=== PATIENT | female | born 1985 | race Caucasian/White ===

== ENCOUNTER 2016-07-18 06:05 | Inpatient (IN) | payer OTHER ==
[~2016-07-18] VITALS: Ht 165.1 cm; Wt 102.5 kg
[2016-07-18] VITALS (15 sets, daily range): BP systolic 123–145; BP diastolic 61–99; PULSE 67–83; RESP 16–20; TEMP 97.9–98.7
[2016-07-18 07:57] LABS: AUTOMATED NEUTROPHIL # 10.1 TH/MM3 (1.8-7.7); BASOPHIL # 0.1 TH/MM3 (0-0.2); BASOPHIL % 0.4 % (0.0-2.0); EOSINOPHIL # 0.2 TH/MM3 (0-0.4); EOSINOPHIL % 1.2 % (0.0-4.0); HEMATOCRIT 38.1 % (35.0-46.0); HEMO FLAGS DIFF FINAL; LYMPH % 17.3 % (9.0-44.0); LYMPHOCYTE # 2.4 TH/MM3 (1.0-4.8); MEAN CELL VOLUME 89.7 FL (80.0-100.0); MEAN CORPUSCULAR HEMOGLOBIN 30.9 PG (27.0-34.0); MEAN CORPUSCULAR HGB CONC 34.4 % (32.0-36.0); MONO % 6.8 % (0.0-8.0); NEUT % 74.3 % (16.0-70.0); PLATELET COUNT 264 TH/MM3 (150-450); RED BLOOD COUNT 4.25 MIL/MM3 (4.00-5.30); RED CELL DISTRIBUTION WIDTH 13.6 % (11.6-17.2); WHITE BLOOD COUNT 13.7 TH/MM3 (4.0-11.0)
[2016-07-18] MEDS ORDERED: PREN1MIS19 PO (07:58)
[2016-07-18 08:09] LABS: BACTERIA, URINE OCC /hpf; BLOOD, URINE LARGE (NEG); GLUCOSE,URINE NEG (NEG); KETONE, URINE NEG (NEG); MUCUS URINE FEW /lpf (OCC); NITRITE,URINE NEG (NEG); PH, URINE 5.5 (5.0-8.5); SQUAMOUS EPITHELIAL CELL URINE 7 /hpf (0-5); URINE COLOR YELLOW (YELLW/STRAW)
[2016-07-18 08:10] LABS: COMMENT (UR) CULTURE INDICATED; CULTURE IF INDICATED CULTURE INDICATED
[2016-07-18] MEDS ORDERED: MEPERIDINE HCL 50 MG/ML VIAL ONE (08:12)
[2016-07-18] MEDS ORDERED: LIDOCAINE HCL 1% 50 ML VIAL ONE (08:12)
[2016-07-18] MEDS ORDERED: OXYTOCIN 30 UNITS-500ML PREMIX 500 ML ONE (08:14)
[2016-07-18 08:27] LABS: ALT (GPT) 15 U/L (10-53); ANION GAP 12 MEQ/L (5-15); AST (GOT) 14 U/L (15-37); BLOOD UREA NITROGEN 11 MG/DL (7-18); CHLORIDE 109 MEQ/L (98-107); GLOMERULAR FILTRATION RATE 88 ML/MIN (>89); POTASSIUM 3.9 MEQ/L (3.5-5.1); SODIUM (NA) 139 MEQ/L (136-145); URIC ACID 6.3 MG/DL (2.6-6.0)
[2016-07-18 08:29] LABS: ALKALINE PHOSPHATASE 125 U/L (45-117); TOTAL BILIRUBIN ADULT 0.4 MG/DL (0.2-1.0)
[2016-07-18] MEDS ORDERED: oxyCODONE/ACETAMINOPHEN 5 MG/325 MG TAB PO PRN ×2 (09:00)
[2016-07-18] MEDS ORDERED: ZOLPIDEM TARTRATE 5 MG TAB PO PRN (09:00)
[2016-07-18] MEDS ORDERED: ALUMINUM/MAGNESIUM/SIMETH 30 ML CUP PO PRN (09:00)
[2016-07-18] MEDS ORDERED: ACETAMINOPHEN 325 MG TAB PO PRN (09:00)
[2016-07-18] MEDS: SODIUM CHLORIDE 0.9% FLUSH 10 ML FLUSH IV FLUSH SCH (09:00)
[2016-07-18] MEDS ORDERED: WITCH HAZEL 50%/GLYCERIN 12.5% 40 PAD JAR TOPICAL PRN (09:00)
[2016-07-18] MEDS ORDERED: BENZOCAINE 20% TOPICAL SPRAY 60 ML CAN TOPICAL PRN (09:00)
[2016-07-18] MEDS ORDERED: ONDANSETRON ODT 4 MG TAB PO PRN (09:00)
[2016-07-18] MEDS ORDERED: OXYTOCIN 30 UNITS-500ML PREMIX 500 ML IV ONE (09:00)
[2016-07-18] MEDS ORDERED: MEPERIDINE HCL 50 MG/ML VIAL IV PUSH ONE (09:00)
[2016-07-18] MEDS ORDERED: SODIUM CHLORIDE 0.9% FLUSH 10 ML FLUSH IV FLUSH PRN (09:00)
--- NOTE | 2016-07-18 09:00 | PD.OB.DELI ---
Delivery Date: Jul 18, 2016 Anesthesia: None Episiotomy: None Vaginal Delivery: Normal Presentation: Occiput anterior Nuchal Cord: None Delayed cord clamping (45 sec): Yes Infant: Male One Minute : 7 Five Minute : 9 Placenta: Spontaneous delivery, Intact, 3 vessel cord Laceration: Perineal laceration, 2 deg Additional Information Quick vaginal delivery of Vicente. Repaired right labial laceration with 5-0 vicryl and midline tear with 3-0 vicryl EBL 300cc Small scrotal separation noted on baby Iris Bentley MD Jul 18, 2016 09:00
--- NOTE | 2016-07-18 09:24 | HHI.HP ---
HPI Chief Complaint late entry, pt seen & admitted with precipitous delivery CC: severe labor pains, contractions Date Seen: Jul 18, 2016 Time Seen: 09:00 Travel History International Travel<30 Days: No Contact w/Intl Traveler<30Days: No Known Affected Area: No History of Present Illness HPI 31 yo G1 EDC 07/19/16 seen in OB ED by FP resident with c/o severe contraction pain. SVE 5/C/BBOW. Admitted for labor. Uncomplicated PNC from record review of office notes, seen by Dr. Nila Cao for all 7 visits at [facility]. Pain 8/10 on admit. Para: 0 : 1 Miscarriage: 0 : 0 History Past Medical History Medical History: Denies Significant Hx Obstetric History Obstetric History G1 = current Past Surgical History Narrative Surgical denies Family History Family History: Negative Social History Alcohol Use: No Tobacco Use: No Substance Abuse: No Allergies-Medications (Allergen,Severity, Reaction): Coded Allergies: No Known Allergies (Unverified , 07/18/16) Home Meds Reported Medications Vit W/ Ferrous Fumara (Pnv Plus Multivi 27-1 & 312 mg)1 Mis Mis1 Tab PO DAILY 07/18/16 Review of Systems General / Constitutional: Weight Gain, No: Fever, Chills, Other Eyes: No: Diploplia, Blurred Vision, Visual changes, Pain, Photophobia HENT: No: Headaches, Vertigo, Lightheadedness Cardiovascular: No: Irregular Rhythm, Chest Pain or Discomfort, Palpitations, Tachycardia, Syncope, Varicosities, Edema, Cyanosis Respiratory: No: Cough, Short of Breath, Other Gastrointestinal: No: Nausea, Vomiting, Diarrhea Genitourinary: Pelvic Pain (pressure/ctx), No: Decreased Urinary Output, Oliguria Musculoskeletal: No: Limited ROM, Weakness, Cramping, Edema, Pain Skin: No Rash, No Itching, No Dryness, No Lumps, No Change in Pigmentation, No Change in Nails, No Alopecia, No Lesions Neurologic: No: Weakness, Dizziness, Syncope, Focal Abnormalities, Coordination Problem, Headache, Slurred Speech, Seizures Psychiatric: No: Depression, Suicidal Ideations, Homicidal Ideation Endocrine: No: Heat Intolerance, Cold Intolerance, Polydipsia, Polyuria, Other Physical Exam Vital Signs Date Time Temp Pulse Resp B/P Pulse Ox O2 Delivery O2 Flow Rate FiO2 07/18/16 08:46 77 137/68 07/18/16 08:46 97.9 07/18/16 08:44 20 07/18/16 08:43 79 145/99 07/18/16 08:35 18 07/18/16 08:28 72 126/71 07/18/16 07:50 70 124/78 Narrative GENERAL: Well-nourished, well-developed patient. Acute distress w/ ctx SKIN: Warm and dry. HEAD: Normocephalic and atraumatic. EYES: No scleral icterus. No injection or drainage. ENT: No nasal drainage noted. Mucous membranes pink. Airway patent. NECK: Supple, trachea midline. No JVD. CARDIOVASCULAR: Regular rate and rhythm without murmurs, gallops, or rubs. RESPIRATORY: Breath sounds equal bilaterally. No accessory muscle use. BREASTS: deferred ABDOMEN/GI: Abdomen soft, non-tender, bowel sounds present, no rebound, no guarding Gravid to [-] weeks size Fundal Height: [-] GENITOURINARY: per report 5/C/BBOW FHT's: Category:I EXTREMITIES: No cyanosis or edema. BACK: Nontender without obvious deformity. No CVA tenderness. NEUROLOGICAL: Awake and alert. Motor and sensory grossly within normal limits. Five out of 5 muscle strength in all muscle groups. Normal speech. Data Data Vital Signs Reviewed: Yes Orders Ob (2e) Additional Admit Info (07/18/16 07:13) Physician Name Changes (07/18/16 ) Fentanyl Inj (Fentanyl Inj) (07/18/16 07:33) Complete Blood Count With Diff (07/18/16 07:46) Hold Clot (07/18/16 07:46) Abo/Rh Blood Type (07/18/16 07:46) Urinalysis - C+S If Indicated (07/18/16 07:46) Uric Acid (07/18/16 07:50) Comprehensive Metabolic Panel (07/18/16 07:50) Admit To Inpatient (07/18/16 ) Resp Oxygen Non Rebreathe Mask (07/18/16 ) Urine Culture (07/18/16 07:10) Lidocaine 1% Inj (50 Ml) (Xylocaine 1% I (07/18/16 08:12) Meperidine Inj (Demerol Inj) (07/18/16 08:12) Oxytocin 30 Units-500ml Premix (Pitocin (07/18/16 08:14) Specimen To Be Collected PRN (07/18/16 09:00) Oxytocin 30 Units-500ml Premix (Pitocin (07/18/16 09:00) Vital Signs (Adult) .QSHIFT (07/18/16 09:00) Activity Oob Ad Arelis (07/18/16 09:00) Ice / Cold Pack PRN (07/18/16 09:00) ^ Discontinue Iv (07/18/16 09:00) Sitz Bath PRN (07/18/16 09:00) ^ Massage (07/18/16 09:00) ^ Rhogam (07/18/16 09:00) Urinary Catheter Management .PRN (07/18/16 09:00) Diet Regular Basic (07/18/16 Breakfast) Sodium Chloride 0.9% Flush (Ns Flush) (07/18/16 09:00) Sodium Chloride 0.9% Flush (Ns Flush) (07/18/16 09:00) Acetaminophen (Tylenol) (07/18/16 09:00) Ibuprofen (Motrin) (07/18/16 09:00) Oxycodone-Acetamin 5-325 Mg (Percocet (07/18/16 09:00) Oxycodone-Acetamin 5-325 Mg (Percocet (07/18/16 09:00) Benzocaine 20% Top Spr (Americaine 20% T (07/18/16 09:00) Witch Kari-Glycerin Pad (Tucks Pads) (07/18/16 09:00) Docusate Sodium-Senna (Noa-Colace) (07/18/16 09:00) Zolpidem (Ambien) (07/18/16 09:00) Rehdfnm-Rcgdb-Dednzkv Inj (M-M-R Ii Inj) (07/18/16 16:00) Gxft-Xux-Veflkm (Booster) Inj (Boostrix (07/18/16 16:00) Al-Mag Hy-Si 40-40-4 Mg/Ml Liq (Mag-Al P (07/18/16 09:00) Ondansetron Odt (Zofran Odt) (07/18/16 09:00) Meperidine Inj (Demerol Inj) (07/18/16 09:00) Labs Laboratory Tests Test 07/18/16 07:10 White Blood Count 13.7 Red Blood Count 4.25 Hemoglobin 13.1 Hematocrit 38.1 Mean Corpuscular Volume 89.7 Mean Corpuscular Hemoglobin 30.9 Mean Corpuscular Hemoglobin 34.4 Concent Red Cell Distribution Width 13.6 Platelet Count 264 Mean Platelet Volume 9.4 Neutrophils (%) (Auto) 74.3 Lymphocytes (%) (Auto) 17.3 Monocytes (%) (Auto) 6.8 Eosinophils (%) (Auto) 1.2 Basophils (%) (Auto) 0.4 Neutrophils # (Auto) 10.1 Lymphocytes # (Auto) 2.4 Monocytes # (Auto) 0.9 Eosinophils # (Auto) 0.2 Basophils # (Auto) 0.1 CBC Comment DIFF FINAL Differential Comment Urine Color YELLOW Urine Turbidity HAZY Urine pH 5.5 Urine Specific [place] 1.012 Urine Protein TRACE Urine Glucose (UA) NEG Urine Ketones NEG Urine Occult Blood LARGE Urine Nitrite NEG Urine Bilirubin NEG Urine Urobilinogen LESS THAN 2.0 Urine Leukocyte Esterase LARGE Urine RBC Urine WBC 79 Urine WBC Clumps RARE Urine Squamous Epithelial 7 Cells Urine Bacteria OCC Urine Mucus FEW Microscopic Urinalysis Comment CULTURE INDICATED Sodium Level 139 Potassium Level 3.9 Chloride Level 109 Carbon Dioxide Level 18.0 Anion Gap 12 Blood Urea Nitrogen 11 Creatinine 0.76 Estimat Glomerular Filtration 88 Rate Random Glucose 84 Uric Acid 6.3 Calcium Level 9.4 Total Bilirubin 0.4 Aspartate Amino Transf 14 (AST/SGOT) Alanine Aminotransferase 15 (ALT/SGPT) Alkaline Phosphatase 125 Total Protein 6.3 Albumin 2.7 Blood Type O POSITIVE Blood Bank Comment Band and Hold Date/Time Procedure Status Source Growth 07/18/16 07:10 Urine Culture Received Urine Clean Catch Pending Assessment/Plan Problem List: (1) (spontaneous vaginal delivery) Assessment and Plan 31 yo G1 at 39w6d admit for labor precipitous course Dr. Bentley was present for delivery Discharge Planning routine 2d PP Eloise Veras MD Jul 18, 2016 09:24
--- NOTE | 2016-07-18 09:38 | HHI.DCPOC ---
Discharge Care Plan Diagnosis: (1) (spontaneous vaginal delivery) Your Health Problems Are: Vaginal delivery Report Symptoms to Your Doctor -Temperate above 100.5 degrees -Redness, of incision or excessive or foul smelling drainage -Unusual pain or calf pain -Increased vaginal bleeding -Painful or difficulty urinating -Feelings of extreme sadness or anxiety after 2 weeks Goals to Promote Your Health * To prevent worsening of your condition and complications * To maintain your health at the optimal level Directions to Meet Your Goals Take your medications as prescribed Follow your dietary instruction Follow activity as directed Ensure plenty of rest for recovery Drink fluids for hydration Keep your appointments as scheduled Take your immunizations and boosters as scheduled If your symptoms worsen call your PCP, if no PCP go to Urgent Care Center or Emergency Room Smoking is Dangerous to Your Health. Avoid second hand smoke Call the 24-hour crisis hotline for domestic abuse at Eloise Veras MD Jul 18, 2016 09:38
[2016-07-18] MEDS ORDERED: IBUP-232 PO (09:39)
[2016-07-18] MEDS ORDERED: LIDOCAINE HCL 1% 50 ML VIAL INFIL PRN (10:45)
[2016-07-18] MEDS ORDERED: CITRIC ACID-SODIUM CITRATE LIQ 30 ML UDC PO SCH (10:45)
[2016-07-18] MEDS ORDERED: OXYTOCIN 30 UNITS 500ML PREMIX IV ONE (10:45)
[2016-07-18] MEDS ORDERED: NS 500 ML BOLUS IV PRN (10:45)
[2016-07-18] MEDS ORDERED: LIDOCAINE HCL 1% 50 ML VIAL I-DERMAL PRN (10:45)
[2016-07-18] MEDS: LACTATED RINGER'S 1000 ML IV SCH (10:45)
[2016-07-18] MEDS ORDERED: MINERAL OIL 10 ML VIAL TOPICAL PRN (10:45)
[2016-07-18] MEDS ORDERED: LACTATED RINGER'S 1000 ML BOLUS IV PRN (10:45)
[2016-07-18] MEDS ORDERED: NS 1000 ML IV PRN (10:45)
[2016-07-18] MEDS ORDERED: MEASLES, MUMPS, RUBELLA VACCINE 0.5 ML VIAL SQ ONE (16:00)
[2016-07-18] MEDS ORDERED: DIPHTH/TETANUS/ACEL PERTUSSIS (BOOSTER) 0.5 ML VIAL/PFS IM ONE (16:00)
[2016-07-18] MEDS: IBUPROFEN 600 MG TAB PO PRN (17:29)
[2016-07-18] MEDS: DOCUSATE SODIUM 50 MG/SENNA 8.6 MG TAB PO PRN ×2 (17:29→20:18)
--- NOTE | 2016-07-19 06:55 | HHI.OB ---
Subjective Post Day: 1 Remarks doing well from ob standpoint, sad about baby's anomalies and need to transfer baby. would like to be d/c with baby Objective Vitals/I&O Vital Signs Date Time Temp Pulse Resp B/P Pulse Ox O2 Delivery O2 Flow Rate FiO2 07/18/16 20:45 98.7 67 18 136/82 07/18/16 11:00 16 07/18/16 11:00 71 123/73 07/18/16 11:00 98.6 07/18/16 09:50 19 07/18/16 09:46 77 132/71 07/18/16 09:35 18 07/18/16 09:31 83 126/61 07/18/16 09:20 18 07/18/16 09:16 76 145/90 07/18/16 09:01 73 127/82 07/18/16 08:46 77 137/68 07/18/16 08:46 97.9 07/18/16 08:44 20 07/18/16 08:43 79 145/99 07/18/16 08:35 18 07/18/16 08:28 72 126/71 07/18/16 07:50 70 124/78 Objective Remarks GENERAL: Well-nourished, well-developed patient. CARDIOVASCULAR: Regular rate and rhythm without murmurs, gallops, or rubs. RESPIRATORY: Breath sounds equal bilaterally. No accessory muscle use. ABDOMEN/GI: Abdomen soft, non-tender. Fundus: Firm, non-tender at umbilicus. GENITOURINARY: Light to moderate bleeding. EXTREMITIES: No cyanosis or edema, non-tender, without signs of DVT. Medications and IVs Current Medications Medications (Trade) Dose Ordered Sig/[place] Route Start Time Stop Time Status Last Admin (NS Flush) 2 ml BID IV FLUSH 07/18/16 09:00 (NS Flush) 2 ml UNSCH PRN IV FLUSH 07/18/16 09:00 (Tylenol) 650 mg Q4H PRN PO 07/18/16 09:00 (Motrin) 600 mg Q6H PRN PO 07/18/16 09:00 07/18/16 17:29 (Percocet 5-325 Mg) 1 tab Q4H PRN PO 07/18/16 09:00 (Percocet 5-325 Mg) 2 tab Q4H PRN PO 07/18/16 09:00 (Americaine 20% Top Spr) 1 spray Q4H PRN TOPICAL 07/18/16 09:00 (Tucks Pads) 1 applic QID PRN TOPICAL 07/18/16 09:00 (Noa-Colace) 2 tab Q12H PRN PO 07/18/16 09:00 07/18/16 20:18 (Ambien) 5 mg HS PRN PO 07/18/16 09:00 (Mag-Al Plus Susp Liq) 15 ml Q8H PRN PO 07/18/16 09:00 Ondansetron HCl 4 mg 4 mg Q6H PRN PO 07/18/16 09:00 Lactated Ringer's 1,000 ml @ 125 mls/hr Q8H IV 07/18/16 10:45 07/18/16 10:45 Lactated Ringer's 1,000 ml @ 3,000 mls/hr BOLUS PRN IV 07/18/16 10:45 Sodium Chloride 500 ml @ 1,000 mls/hr BOLUS PRN IV 07/18/16 10:45 (NS 1000 ml Inj) 1,000 ml @ 100 mls/hr Q10H PRN IV 07/18/16 10:45 (fentaNYL INJ) 50 mcg Q1H PRN IV PUSH 07/18/16 10:45 (fentaNYL INJ) 100 mcg Q1H PRN IV PUSH 07/18/16 10:45 07/18/16 10:47 (Muri-Lube Oil) 10 ml UNSCH PRN TOPICAL 07/18/16 10:45 Assessment/Plan Problem List: (1) (spontaneous vaginal delivery) Assessment and Plan ppd 1 sp precipitous delivery baby w ambiguous genitalia, hypospadies, sacral dimple, skin changes, webbed fingers, abn external ear, baby being evaluated by peds for possible need for transfer will not have circumcision during hospitalization discussed f/u in 2 wk, s/sx of depression. Discharge Planning routine 2d PP Cynthia Frye MD Jul 19, 2016 06:55
[2016-07-19 08:30] VITALS: BP 135/78; PULSE 81; RESP 18; TEMP 98.1
[2016-07-19] MEDS: IBUPROFEN 600 MG TAB PO PRN ×2 (08:40→14:19)
[2016-07-19] MEDS: DOCUSATE SODIUM 50 MG/SENNA 8.6 MG TAB PO PRN (08:41)
[2016-07-19] MEDS: LACTATED RINGER'S 1000 ML IV SCH (19:33)
[2016-07-19] MEDS: SODIUM CHLORIDE 0.9% FLUSH 10 ML FLUSH IV FLUSH SCH (19:33)
[2016-07-19 20:57] VITALS: BP_SYST 121; BP_DIAS 54; BP_DIAS 84; PULSE 71; RESP 18; TEMP 98.1
[2016-07-20] MEDS: IBUPROFEN 600 MG TAB PO PRN (05:58)
[2016-07-20 08:15] VITALS: BP 114/72; PULSE 85; RESP 16; TEMP 98.2
== END 2016-07-20 12:02 | disposition home or self-care (01) | DRG 775 ==
LOC: HOBED 06:05 → H2EB 07:17 → H1EA 11:00
PROVIDERS: ADMIT Obstetrics & Gynecology; ATTEND Obstetrics & Gynecology
PROC: 10E0XZZ Delivery of Products of Conception, External Approach (ICD-10-PCS; principal; 2016-07-18)
PROC: 0KQM0ZZ Repair Perineum Muscle, Open Approach (ICD-10-PCS; 2016-07-18)
DX: O62.3 Precipitate labor (principal); O70.1 Second degree perineal laceration during delivery; Z37.0 Single live birth; Z3A.39 39 weeks gestation of pregnancy
CPT/HCPCS: 59025; 80053; 81001; 84550; 85025; 86900; 86901; 87086; 88307; 99285; J2175; J2590; J3010; J7120